=== PATIENT | female | born 1985 | race Asian ===

== ENCOUNTER 2019-02-17 14:20 | Inpatient (IN) | payer OTHER ==
[2019-02-17] MEDS ORDERED: Buffered Lidocaine 1% SYRIN* 1 ML/SYRINGE INTRADERM ONE (16:46)
[2019-02-17] MEDS ORDERED: Lactated Ringers 1000 ML Bag* 1,000 ML IV ONE ×2 (16:46→20:53)
[2019-02-17] MEDS ORDERED: Lactated Ringers 1000 ML Bag* 1,000 ML IV SCH ×2 (17:00→21:00)
--- NOTE | 2019-02-17 17:03 | HP ---
General Information - Reason for Visit Contraction now q 5-6 min apart, getting stronger. Spotting mildly but no heavy bleeding. - General Information Maternal Age: 33 Grav: 1 Para: 0 SAB: 0 IEA: 0 Estimated Due Date: 02/20/19 Determined By: Early Ultrasound Maternal Blood Type and Rh: O Positive - Results this Serology/RPR Result: Non-Reactive Rubella Result: Immune HBsAg Result: Negative HIV Result: Negative GBS Culture Result: Negative Past Medical History Delivery History: See Records Pertinent Past Medical History: Non-Contributory Pertinent Past Surgical History: See Records Past Surgical History Comment: Ganglion cyst sx 2003 Pertinent Family History: Non-Contributory Family History Comment: Lung Ca - Antepartal Records Antepartal Records: Reviewed, Uncomplicated Review of Systems Constitutional: Uncomfortable CV Complaint: No Respiratory: Shortness of Breath: No Gastrointestinal: No Nausea/Vomiting, Normal Bowel Movement Genitourinary: No Dysuria, No Leaking Fluid, Spotting Musculoskeletal: Contractions Neurological: No Headache, No Visual Changes Movement: Normal Exam Allergies/Adverse Reactions: Allergies No Known Allergies Allergy (Verified 02/17/19 11:46) BP 123/83 T 99.1 HR 90 RR 20 O2 95% - Measurements Height: 5 ft 4.96 in Weight: 180 lb Weight in lbs: [id number] Body Mass Index (BMI): 29.9 Pre- Weight: 120 lb Weight Gained This : 60 lbs and 0 ozs - Exam Breast: Breast Exam Deferred CVA: No CVA Tenderness Extremities: No Edema Heart: Normal Rhythm/Heart Sounds HEENT: No Significant Findings Lungs: Clear Bilaterally Rectal: Rectal Exam Deferred Reflexes: DTR 2+, - - no clonus Thyroid: - - WNL @ entry to care - Abdominal Exam Abdomen Exam: Non-Tender, Fundal Height Consistent with Dates - Ultrasound/Biophysical Profile Ultrasound Status: Not Done Targeted Exam Findings See L&D Outpatient Visit Provider Note for Findings: Yes Estimated Weight: 7.5lb Cervical Exam: 3cm Effacement: 100% Station: 0 Presenting Part: Vertex Membrane Status: Intact Bleeding/Discharge: Bloody Show EFM Findings - External Monitor Findings Baseline Heart Rate: 145 External Monitor Findings: Accelerations Present, No Pattern of Variable or Late Decelerations, Variability Moderate Contractions: Regular, Moderate, 45-90 Seconds Contraction Frequency: Q 4-6 min Assessment/Plan - Assessment IUP @ 39+4 weeks gestation in early labor. IBOW. No evidence metabolic acidemia - Plan Plan: Admit - Anticipate Vaginal Delivery Plan Comment: Admit to L&D. Encourage movement and upright positioning, push fluids, eat to appetite. Brief discussion of pain management options and patient may desire epidural but is uncertain. Anticipate SVB. - Date/Time of Admission Date of Admission: 02/17/19 Time of Admission: 16:47
[2019-02-17 17:47] LABS: Urine Benzodiazepine Screen None Detected (None Detect); Urine Opiates Screen None Detected (None Detect)
[2019-02-17] MEDS ORDERED: OBEPIDURAL* 250 ML EPIDURAL ONE (20:02)
[2019-02-17 20:03] LABS: ABS Basophils 0.1 10^3/ul (0-0.2); ABS Lymphocytes 1.7 10^3/ul (1.0-4.8); ABS Monocytes 0.7 10^3/ul (0-0.8); ABS Neutrophils 15.8 10^3/ul (1.5-7.7); Eosinophil % 0.1 %; Hematocrit 38 % (35-47); Hemoglobin 13.5 g/dL (12.0-16.0); Lymphocyte % 9.2 %; Mean Corpuscular HGB Conc 35 g/dL (31-36); Mean Corpuscular Hemoglobin 33 pg (27-31); Mean Corpuscular Volume 95 fL (80-97); Mean Platelet Volume 10.4 fL (7.4-10.4); Platelet Count 185 10^3/uL (150-450); Red Blood Count 4.03 10^6 /uL (3.70-4.87); Red Cell Distribution Width 13 % (10-15); White Blood Count 18.3 10^3/uL (3.5-10.8)
[2019-02-17] MEDS ORDERED: Phenylephrine 40 MCG/ML SYRINGE IV PUSH PRN ×2 (20:53)
[2019-02-17] MEDS ORDERED: Sodium Citrate/Citric Acid* 15 ML UDC PO PRN (20:53)
[2019-02-17] MEDS ORDERED: EPHEDrine (Pressors)* 50 MG/ML VIAL IV PUSH PRN ×2 (20:53)
[2019-02-17] MEDS ORDERED: Famotidine TAB* 20 MG PO PRN (20:53)
[2019-02-17] MEDS ORDERED: OBEPIDURAL* 250 ML EPIDURAL SCH (21:00)
--- NOTE | 2019-02-17 22:47 | PN ---
Progress Note - Progress Note Date of Service: 02/17/19 Note: S: Has been comfortable with epidural and resting. Reports more pressure low in pelvis with contractions now. Desires VE O: VE: Complete/100/0 FHT 135, occ variable decels, +accels, mod variability UCs q 2-5 min A: IUP in active labor P: Plan to labor down, consider patient controlled bolus button if more uncomfortable. Patient declines amniotomy for now.
[2019-02-18] MEDS ORDERED: Ondansetron INJ* 2 MG/ML VIAL ONE (02:40)
[2019-02-18] MEDS ORDERED: Oxytocin in LR* 20 UNITS/1,000 ML BAG IVPB ONE (02:41)
[2019-02-18] MEDS ORDERED: Ondansetron INJ* 2 MG/ML VIAL IV PRN (02:42)
[2019-02-18] MEDS ORDERED: Acetaminophen TAB* 325 MG PO PRN (03:57)
[2019-02-18] MEDS ORDERED: Glycerin ADULT SUPP PR PRN (03:57)
[2019-02-18] MEDS ORDERED: Lactated Ringers 1000 ML Bag* 1,000 ML IV SCH (04:00)
[2019-02-18] MEDS ORDERED: Oxytocin in LR* 20 UNITS/1,000 ML BAG IVPB SCH (04:00)
--- NOTE | 2019-02-18 04:08 | PROCNOTE ---
[facility] OB: Delivery Note - Delivery A Date of : 02/18/19 Time of : 03:25 Sex: Male Score 1 Minute: 9 Score 5 Minutes: 9 Gestational Age in Weeks and Days at Delivery: 39 Weeks and 5 Days Delivery Method: Spontaneous Vaginal Labor: Spontaneous Did Patient attempt ?: N/A, No Previous Amniotic Fluid: Clear Estimated Blood Loss: 200 Anesthesia/Analgesia: CEI for Labor Delivered By: Ariana Hughes - Nursery Level of Nursery: Regular/Bedside - Perineum Perineal Injury: 2nd Degree Perineal Repair: By Delivering Practioner - Events Delivery Events of Note: Pitocin During Labor, Supplemental O2 to Mother - Additional Delivery Notes Additional Delivery Notes: Patient admitted in early labor. Received epidural as desired with good results. Found to be complete but labored down until more consistent pressure felt. LOL 8'3", pushed 2'13". 2mIU pitocin given to augment contractions. Baby born OA-YOSSI @ 0325. Body cord unwrapped after delivery. Delivered to maternal abdomen with spontaneous cry and HR >100. Patient noticed that baby has extra digit on left hand, attached by small string of skin. Cord doubly clamped and cut by FOB once pulsations ceased. Placenta delivered with gentle cord traction @ 0333 in Rohan position with intact-appearing membranes and 3VC. Fundus firm to massage and with pitocin infusing. Repair as above. Mother and baby stable, planning to breastfeed.
[2019-02-18] MEDS ORDERED: Lidocaine 1% INJ* 10 MG/ML 30 ML SDV ONE (04:47)
[2019-02-18] MEDS: Dibucaine 1% 28.35 GM TUBE PR PRN (07:46)
[2019-02-18] MEDS: Witch Hazel PAD* JAR TOPICAL PRN (07:46)
[2019-02-18] MEDS: Docusate CAP* 100 MG PO SCH ×3 (07:49→20:13)
[2019-02-18] MEDS: Ibuprofen TAB* 600 MG PO PRN ×3 (07:50→20:13)
[2019-02-19] MEDS: Witch Hazel PAD* JAR TOPICAL PRN ×2 (04:52→23:43)
[2019-02-19] MEDS: Dibucaine 1% 28.35 GM TUBE PR PRN ×2 (04:52→23:43)
[2019-02-19 06:22] LABS: ABS Basophils 0.1 10^3/ul (0-0.2); ABS Eosinophils 0.1 10^3/ul (0-0.6); ABS Lymphocytes 2.2 10^3/ul (1.0-4.8); ABS Monocytes 0.7 10^3/ul (0-0.8); Eosinophil % 0.7 %; Hematocrit 35 % (35-47); Hemoglobin 12.2 g/dL (12.0-16.0); Lymphocyte % 14.5 %; Mean Corpuscular HGB Conc 35 g/dL (31-36); Mean Corpuscular Hemoglobin 34 pg (27-31); Mean Corpuscular Volume 96 fL (80-97); Mean Platelet Volume 8.9 fL (7.4-10.4); Platelet Count 161 10^3/uL (150-450); Red Blood Count 3.63 10^6 /uL (3.70-4.87); Red Cell Distribution Width 13 % (10-15)
[2019-02-19] MEDS: Ibuprofen TAB* 600 MG PO PRN ×2 (07:22→14:51)
[2019-02-19] MEDS: Docusate CAP* 100 MG PO SCH ×3 (08:28→20:34)
[2019-02-19] MEDS ORDERED: Ferrous Gluconate TAB* 324 MG TAB PO SCH (09:00)
[2019-02-20 08:29] VITALS: BP 116/80
[2019-02-20] MEDS: Docusate CAP* 100 MG PO SCH (08:41)
[2019-02-20] MEDS: Ibuprofen TAB* 600 MG PO PRN (08:41)
== END 2019-02-20 10:30 | disposition home or self-care (01) | DRG 807 ==
LOC: MCHOBOUT 14:20 → MCHOB 16:47
PROVIDERS: ADMIT Midwife; ATTEND Midwife
PROC: 10E0XZZ Delivery of Products of Conception, External Approach (ICD-10-PCS; principal; 2019-02-18)
PROC: 0KQM0ZZ Repair Perineum Muscle, Open Approach (ICD-10-PCS; 2019-02-18)
DX: O70.1 Second degree perineal laceration during delivery (principal); Z37.0 Single live birth; Z3A.39 39 weeks gestation of pregnancy
CPT/HCPCS: 36415; 80307; 85025; 86850; 86900; 86901; A9270-GY; J2405